=== PATIENT | male | born 2000 | race Caucasian/White ===

== ENCOUNTER → 2022-05-27 | Outpatient (CLI) | LOC: M SOG 09:41 | PROVIDERS: ATTEND Physician Assistant | DX: S62.312A Displaced fracture of base of third metacarpal bone, right hand, initial encounter for closed fracture (principal); X58.XXXA Exposure to other specified factors, initial encounter; Y92.89 Other specified places as the place of occurrence of the external cause; Y93.89 Activity, other specified; Y99.8 Other external cause status ==

== ENCOUNTER → 2022-06-03 | Outpatient (CLI) | payer OTHER | LOC: M RAD 07:17 | PROVIDERS: ATTEND Orthopaedic Surgery Hand Surgery | DX: S62.31 Displaced fracture of base of other metacarpal bone (principal) ==

== ENCOUNTER 2022-06-11 11:47 | Day surgery (SDC) | payer OTHER ==
[~2022-06-11] VITALS: Ht 175.3 cm; Wt 80.6 kg
[2022-06-11] MEDS ORDERED: LR 1,000 ML IV SCH ×2 (11:55→15:05)
[2022-06-11] MEDS ORDERED: ceFAZolin SOD 2 GM in IV 1 EA IV ONE (12:20)
[2022-06-11] MEDS ORDERED: MIDAZOLAM INJ 2MG/2ML VIAL As Ordered ONE (12:41)
[2022-06-11] MEDS ORDERED: ONDANSETRON 4MG 2ML VIAL As Ordered ONE (12:41)
[2022-06-11] MEDS ORDERED: propofoL 200 MG/20 ML VIAL As Ordered ONE (12:41)
[2022-06-11] MEDS ORDERED: fentaNYL 100 MCG/2 ML INJECTION As Ordered ONE (12:41)
[2022-06-11] MEDS ORDERED: LIDOCAINE 2% 100MG/5ML SDV (FOR ANES.) As Ordered ONE (12:41)
[2022-06-11] MEDS ORDERED: BUPIVACAINE HCL 0.25% 30ML VIAL As Ordered ONE (13:50)
[2022-06-11] MEDS ORDERED: KETOROLAC 60MG 2ML VIAL As Ordered ONE (13:55)
[2022-06-11] MEDS ORDERED: ACETAMINOPHEN 1000MG 100ML IV BAG As Ordered ONE (13:55)
[2022-06-11] MEDS ORDERED: oxyCODONE 5MG TAB PO PRN (15:05)
[2022-06-11] MEDS ORDERED: fentaNYL 100 MCG/2 ML INJECTION IV PRN (15:05)
[2022-06-11] MEDS ORDERED: ONDANSETRON 4MG 2ML VIAL IV PRN (15:05)
[2022-06-11] MEDS ORDERED: PERC5TAB12 PO (15:13)
[2022-06-11 16:10] VITALS: BP 125/77
== END 2022-06-11 16:16 | disposition home or self-care (01) ==
LOC: M SDC 11:47
PROVIDERS: ATTEND Orthopaedic Surgery Hand Surgery
DX: S62.303A Unspecified fracture of third metacarpal bone, left hand, initial encounter for closed fracture (principal); X58.XXXA Exposure to other specified factors, initial encounter; Y92.89 Other specified places as the place of occurrence of the external cause; Y93.9 Activity, unspecified; Y99.9 Unspecified external cause status
CPT/HCPCS: 11012; 76000; J0131; J0690; J1100; J1885; J2250; J2405; J3010; S0020

== ENCOUNTER → 2022-06-19 | Outpatient (CLI) | payer OTHER ==
[~2022-06-19] MED LIST: PERC5TAB12 PO
== END ==
LOC: M SOG 08:42
PROVIDERS: ATTEND Physician Assistant
DX: S62.31 Displaced fracture of base of other metacarpal bone (principal)

== ENCOUNTER → 2022-07-10 | Outpatient (CLI) | payer OTHER | LOC: M SOG 08:31 | PROVIDERS: ATTEND Physician Assistant | DX: Z47.89 Encounter for other orthopedic aftercare (principal); S62.312D Displaced fracture of base of third metacarpal bone, right hand, subsequent encounter for fracture with routine healing ==

== ENCOUNTER → 2022-09-16 | Outpatient (CLI) | payer OTHER | LOC: M SOG 07:57 | PROVIDERS: ATTEND Physician Assistant | DX: S62.312D Displaced fracture of base of third metacarpal bone, right hand, subsequent encounter for fracture with routine healing (principal) ==